=== PATIENT | female | born 1995 | race Hispanic/Latino ===

== ENCOUNTER 2022-11-07 16:01 | Emergency (ER) | payer MEDICAID ==
[~2022-11-07] VITALS: Ht 160 cm; Wt 58.1 kg
[~2022-11-07 16:01] MED LIST: FERR-82 PO
[2022-11-07] MEDS ORDERED: FAMOTIDINE 20MG TAB PO ONE (17:00)
[2022-11-07] MEDS ORDERED: ONDANSETRON ODT 4MG TAB SL ONE (17:00)
[2022-11-07 17:04] LABS: BASOPHILS % (AUTO) 0.3 % (0.0-5.0); EOSINOPHILS % (AUTO) 0.9 % (0.0-8.0); HEMATOCRIT 47.2 % (36-48); LYMPHOCYTES % (AUTO) 8.3 % (21.0-51.0); MEAN CORPUSCULAR HEMOGLOBIN 28.3 pg (27.0-33.0); MEAN CORPUSCULAR HGB CONC 32.2 g/dL (32.0-36.0); MEAN CORPUSCULAR VOLUME 87.9 fL (79-99); MONOCYTES % (AUTO) 5.9 % (3.0-13.0); NEUTROPHILS % (AUTO) 84.5 % (40.0-77.0); PLATELET COUNT (AUTO) 244 K/uL (130-400); RED BLOOD CELL COUNT(AUTO) 5.37 MIL/uL (4.00-5.50); RED CELL DISTRIBUTION WIDTH 13.3 % (11.0-15.5)
[2022-11-07 17:08] LABS: CARBON DIOXIDE 28 mmol/L (21-32); CHLORIDE 99 mmol/L (101-111); CREATININE 0.8 mg/dL (0.5-1.5); GLOMERULAR FILTR. RATE CALC 103 mL/min (>90); GLUCOSE,RANDOM 109 mg/dL (70-105); SODIUM SERUM 135 mmol/L (136-145); UREA NITROGEN, BLOOD 10 mg/dL (7-18)
[2022-11-07 17:12] LABS: ALANINE AMINOTRANSFERASE 26 U/L (12-78); AMMONIA < 10 umol/L (11-32); ASPARTATE AMINOTRANSFERASE 25 U/L (10-37); TOTAL PROTEIN, SERUM 8.9 g/dL (6.0-8.3)
[2022-11-07 17:15] LABS: LIPASE < 50 U/L (114-286)
[2022-11-07 18:03] VITALS: BP 133/70
[2022-11-07] MEDS ORDERED: PANT40TA PO (18:20)
== END 2022-11-07 18:39 | disposition home or self-care (01) ==
LOC: EDH 16:01
DX: K29.00 Acute gastritis without bleeding (principal)
CPT/HCPCS: 36415; 76705; 80053; 82140; 83690; 85025